=== PATIENT | male | born 1970 | race African-American/Black ===

== ENCOUNTER → 2016-05-08 | Outpatient (CLI) | payer BC ==
--- NOTE | 2016-05-08 14:09 | MR ---
EXAMINATION TYPE: MR lumbar spine wo con DATE OF EXAM: 05/08/2016 12:13 PM COMPARISON: NONE HISTORY: Radiculopathy, Lumbar region TECHNIQUE: Multiplanar, multisequence images of the lumbar spine were acquired. L1-L2: Normal disc appearance without desiccation. No herniation, protrusion or disc bulging. No ca nal stenosis is present. Foramina are patent bilaterally. L2-L3: Normal disc appearance without desiccation. No herniation, protrusion or disc bulging. No ca nal stenosis is present. Foramina are patent bilaterally. L3-L4: Normal disc appearance without desiccation. No herniation, protrusion or disc bulging. No ca nal stenosis is present. Foramina are patent bilaterally. L4-L5: Normal disc appearance without desiccation. No herniation, protrusion or disc bulging. No ca nal stenosis is present. Foramina are patent bilaterally. L5-S1: Posterior extension of endplate disc complex extension circumferentially encroach on the neura l foramina bilaterally, posterior broad-based disc herniation may contact the proximal S1 nerve roots , contact the anterior thecal sac. Lumbar segments are intact. No paraspinal masses are identified. Conus medullaris has a normal appe arance. There is a minimal retrolisthesis grade 1 L5-S1, there is associated loss of disc height, spo ndylosis, endplate marrow signal change. I question marrow reconversion, correlate to exclude anemia. Cortical cyst is suspected within the right kidney. IMPRESSION: Degenerative disc disease, foraminal encroachment at L5-S1 as described. Correlate to exclude anemia.
== END | disposition home or self-care (01) ==
LOC: RADMRIMAIN 11:16
PROVIDERS: ATTEND Family Medicine
DX: M51.17 Intervertebral disc disorders with radiculopathy, lumbosacral region (principal)
CPT/HCPCS: 72148